=== PATIENT | female | born 1970 | race Caucasian/White ===

== ENCOUNTER 2021-04-26 09:54 | Inpatient (IN) | payer OTHER ==
[~2021-04-26] VITALS: Ht 160 cm; Wt 56.7 kg
[~2021-04-26 09:54] MED LIST: ACETAMINOOPHEN-1 TAB PO; ADVIL100 MG PO; CLONAZEPAM1 MG PO; DOCUSATE SODIU100 MG PO; NEURONTIN300 MG PO; NORFLEX100MG; RELAFEN PO
[2021-05-02] MEDS ORDERED: COLACE100 MG PO (07:20)
[2021-05-02] MEDS ORDERED: AMOX-CLAV 875-1 EACH PO (07:21)
[2021-05-02] MEDS ORDERED: ACETAMINOPHEN-1 EAC2 PO (07:21)
[2021-05-02] MEDS ORDERED: MEDROLPACK PO (07:21)
== END 2021-05-03 15:09 | disposition home or self-care (01) | DRG 473 ==
LOC: ADM 11:30 → EDSTATUS 11:30 → PED 05-02 05:12 → O/R 05-02 05:12 → SURH 05-02 07:00 → O/R 05-02 07:30 → PED 05-02 11:26 → SURH 05-02 11:30 → PED 05-03 15:09
PROVIDERS: ADMIT Orthopaedic Surgery Orthopaedic Surgery of the Spine; ATTEND Orthopaedic Surgery Orthopaedic Surgery of the Spine
PROC: 0RT30ZZ Resection of Cervical Vertebral Disc, Open Approach (ICD-10-PCS; 2021-05-02)
PROC: 07DS3ZZ Extraction of Vertebral Bone Marrow, Percutaneous Approach (ICD-10-PCS; 2021-05-02)
PROC: 0RG10A0 Fusion of Cervical Vertebral Joint with Interbody Fusion Device, Anterior Approach, Anterior Column, Open Approach (ICD-10-PCS; principal; 2021-05-02 07:00)
DX: M50.023 Cervical disc disorder at C6-C7 level with myelopathy (principal); M48.02 Spinal stenosis, cervical region